=== PATIENT | female | born 1955 | race Caucasian/White ===

== ENCOUNTER 2024-05-18 18:39 | Emergency (ER) | payer BC, SELFPAY ==
[2024-05-18 18:44] VITALS: BP 137/83; PULSE 90; TEMP 36.8; O2SAT 97; BMI 26.0
--- NOTE | 2024-05-18 19:17 | XR_ITS ---
The [address] [address] Patient Name: DEBBIE COLES MRN: [id number] date: 1955 Sex: F Assigned Patient Location: ER Current Patient Location: ED.MAIN Accession/Order Number: [id number] Exam Date: 05/18/2024 19:40 Report Date: 05/18/2024 20:30 At the request of: SERGEY WARE Procedure: XR elbow LT min 3V EXAM: XR elbow LT min 3V HISTORY: Atraumatic pain, possible bursitis COMPARISON: None. TECHNIQUE: 3 views of the left elbow were obtained. FINDINGS: There is no evidence of an acute fracture or dislocation. The joint spaces are intact. No osteochondral injury is identified. There is no evidence of a joint effusion. Prominent soft tissue swelling is seen posterior to the olecranon. A small linear calcification is seen adjacent to the posterior olecranon. XR/XR elbow LT min 3V IMPRESSION: No apparent acute fracture or dislocation. The joint spaces are intact. Prominent soft tissue swelling laterally with some calcifications may be related to bursitis or other inflammatory process, or possibly a hematoma. Electronically authenticated by: ONEIL HERNÁNDEZ Date: 05/18/2024 20:30
--- NOTE | 2024-05-18 19:18 | ED_ITS ---
HPI HPI - General Adult General Chief complaint: Skin/Abscess/Foreign Body Stated complaint: LUMP Time Seen by Provider: 05/18/24 19:04 Source: patient Mode of arrival: walk-in Limitations: no limitations History of Present Illness HPI narrative: 69-year-old female presents to the emergency department for a chief complaint of swelling to her left elbow. She has had it for several days and there was no trauma. She was seen that yesterday at an urgent care and she had an outpatient x-ray that she states showed no bony abnormalities. She was put on an antibiotic, Biaxin. She has had 3 doses. She came in here because she wanted to know if it needed to be drained or not. Related Data Home Medications ?Medication ?Instructions ?Recorded ?Confirmed clarithromycin 500 mg tablet 500 mg PO Q12H 05/18/24 05/18/24 Allergies Allergy/AdvReac Type Severity Reaction Status Date / Time No Known Drug Allergies Allergy Verified 05/18/24 18:49 Opioid HPI Opioid Management Most Recent Opioid Data: Last Pain Scale 0 05/18/24 18:52 Last ED Pain Assessment 05/18/24 18:51 Review of Systems ROS Narrative A ten point review of systems is negative except as noted above. Exam Narrative Exam Narrative: Nurses note and vital signs reviewed and patient is not hypoxic. General: The patient appears well and in no apparent distress. Patient is resting comfortably on cart. Skin: Warm, dry, no pallor noted. There is no rash noted. Head: Normocephalic, atraumatic Eye: Normal conjunctiva, no drainage Ears, Nose, Mouth, and Throat: oral mucosa is moist. Nares patent. Cardiovascular: Regular Rate and Rhythm Respiratory: Patient is in no distress, no accessory muscle use, lungs are clear to auscultation, no wheezing, rales or rhonchi Back: non-tender GI: Soft and nontender Musculoskeletal: The left elbow has swelling over the olecranon with some mild erythema. There is no open area or drainage. Elbow has full range of motion. Neurological: A&O, normal speech Psychiatric: Cooperative Constitutional Vital Signs, click to edit/add: Last Vital Signs Temp 98.3 F 05/18/24 18:44 Pulse 90 05/18/24 18:44 Resp 18 05/18/24 18:44 BP 137/83 05/18/24 18:44 Pulse Ox 97 08/06/24 18:44 Course Vital Signs Vital signs: Vital Signs Temperature 98.3 F 05/18/24 18:44 Pulse Rate 90 05/18/24 18:44 Respiratory Rate 18 05/18/24 18:44 Blood Pressure 137/83 05/18/24 18:44 Pulse Oximetry 97 05/18/24 18:44 Temperature 98.3 F 05/18/24 18:44 Pulse Rate 90 05/18/24 18:44 Respiratory Rate 18 05/18/24 18:44 Blood Pressure 137/83 05/18/24 18:44 Pulse Oximetry 97 05/18/24 18:44 Medical Decision Making MDM Narrative Medical decision making narrative: The patient has bursitis and I am concerned about the possibility of septic bursitis. I discussed the case with Dr. Cuello and he is going to see her at his office in [place] tomorrow morning at 8 AM, 12 hours from now. She was given a sling, application checked by me and found to be appropriate, she is neurovascularly intact. She was instructed to be n.p.o. after midnight. I do not suspect septic arthritis. Treatment diagnosis and follow-up were discussed thoroughly with the patient. Differential Diagnosis Differential Diagnosis: Bursitis, septic bursitis, cellulitis Lab Data Lab results reviewed: Yes I reviewed the patient's lab results Labs: Lab Results 05/18/24 Range/Units 19:35 WBC 11.8 H (4.0-11.0) 10^3/uL RBC 4.49 (4.20-5.40) 10^6/uL Hgb 14.0 (12.0-16.0) g/dL Hct 41.0 (36.0-48.0) % MCV 91.3 (81.0-99.0) fL MCH 31.2 (26.7-34.0) pg MCHC 34.1 (29.9-35.2) g/dL RDW 13.2 (11.0-15.0) % Plt Count 241 (150-450) 10^3/uL MPV 8.5 L (9.5-13.5) fL Neut % (Auto) 68.4 (43.0-75.0) % Lymph % (Auto) 21.4 (20.5-60.0) % [place] % (Auto) 7.6 (1.7-12.0) % Eos % (Auto) 1.7 (0.9-7.0) % Baso % (Auto) 0.6 (0.2-2.0) % Neut # (Auto) 8.1 H (1.4-6.5) 10^3/uL Lymph # (Auto) 2.5 (1.2-3.8) 10^3/uL [place] # (Auto) 0.9 H (0.3-0.8) 10^3/uL Eos # (Auto) 0.2 (0.0-0.7) 10^3/uL Baso # (Auto) 0.1 (0.0-0.1) 10^3/uL Abs Immat Gran (auto) 0.04 H (0.00-0.03) 10^3/uL Imm/Tot Granulo (auto) 0.3 (0.0-0.5) % ESR 67 H (<=30) mm/hr Sodium 137 (136-145) mmol/L Potassium 3.5 (3.5-5.1) mmol/L Chloride 100 (98-107) mmol/L Carbon Dioxide 26.9 (21.0-32.0) mmol/L Anion Gap 13.6 BUN 19.0 H (7.0-18.0) mg/dL Creatinine 1.00 (0.55-1.02) mg/dL Est GFR ( Amer) >60 (>=60) Est GFR (Non-Af Amer) 55 L (>=60) BUN/Creatinine Ratio 19.0 Glucose 93 (74-106) mg/dL Uric Acid 7.1 H (2.6-6.0) mg/dL Calcium 9.0 (8.5-10.1) mg/dL C-Reactive Protein 11.48 H (<=0.50) mg/dL Imaging Data Left elbow x-ray: My impression: Soft tissue swelling over the olecranon Discharge Plan Discharge Stand Alone Forms: Portal Instructions Chief Complaint: Skin/Abscess/Foreign Body Clinical Impression: Bursitis of left elbow Patient Disposition: Home, Self-Care Time of Disposition Decision: 20:04 Condition: Good Mode of Transportation: Private Vehicle Prescriptions / Home Meds: No Action clarithromycin 500 mg tablet 500 mg PO Q12H Print Language: Malagasy Instructions: Elbow Bursitis (ED) Additional Instructions: See Dr. Cuello at his office in [place] at 8 AM tomorrow. Do not eat or drink anything after midnight tonight. Referrals: Physician,Non-Staff, MD [Primary Care Provider] - 1 week
[2024-05-18 19:45] LABS: Basophils Absolute Auto 0.1 10^3/uL (0.0-0.1); Basophils Percent Auto 0.6 % (0.2-2.0); Eosinophils Absolute Auto 0.2 10^3/uL (0.0-0.7); Eosinophils Percent Auto 1.7 % (0.9-7.0); Immature Granulocytes Abs Auto 0.04 10^3/uL (0.00-0.03); Immature Granulocytes Pct Auto 0.3 % (0.0-0.5); Lymphocytes Absolute Auto 2.5 10^3/uL (1.2-3.8); Lymphocytes Percent Auto 21.4 % (20.5-60.0); Mean Corpuscular HGB Conc 34.1 g/dL (29.9-35.2); Mean Corpuscular Hemoglobin 31.2 pg (26.7-34.0); Mean Corpuscular Volume 91.3 fL (81.0-99.0); Mean Platelet Volume 8.5 fL (9.5-13.5); Monocytes Absolute Auto 0.9 10^3/uL (0.3-0.8); Monocytes Percent Auto 7.6 % (1.7-12.0); Neutrophils Absolute Auto 8.1 10^3/uL (1.4-6.5); Neutrophils Percent Auto 68.4 % (43.0-75.0); Platelet Count 241 10^3/uL (150-450); Red Blood Count 4.49 10^6/uL (4.20-5.40); Red Cell Distribution Width 13.2 % (11.0-15.0); White Blood Count 11.8 10^3/uL (4.0-11.0)
[2024-05-18 19:50] LABS: Erythrocyte Sedimentation Rate 67 mm/hr (<=30)
[2024-05-18 19:55] LABS: Anion Gap 13.6; Carbon Dioxide 26.9 mmol/L (21.0-32.0); Chloride 100 mmol/L (98-107); Estimated GFR (African America >60 (>=60); Estimated GFR (Non-African Ame 55 (>=60); Glucose 93 mg/dL (74-106); Potassium 3.5 mmol/L (3.5-5.1); Sodium 137 mmol/L (136-145)
[2024-05-18 19:57] LABS: C Reactive Protein 11.48 mg/dL (<=0.50); Uric Acid 7.1 mg/dL (2.6-6.0)
== END 2024-05-18 20:17 | disposition home or self-care (01) ==
PROVIDERS: Emergency Provider Emergency Medicine
DX: M70.32 Other bursitis of elbow, left elbow (principal)
CPT/HCPCS: 36415; 73080; 80048; 84550; 85025; 85652; 86140; 99284